=== PATIENT | female | born 1965 | race Caucasian/White ===

== ENCOUNTER → 2019-04-06 07:15 | Outpatient (CLI) | payer BC, SELFPAY ==
--- NOTE | 2019-04-06 10:45 | NEURO ---
NCS and/or EMG Patient Report Ordering Doctor: Mahendra Alaniz DATE OF SERVICE: 04/06/19 This is a 53-year-old female with a history of a fall since then she has had paresthesias in the third fourth and fifth digits of the left hand. She is healthy otherwise. Left upper extremity sensory and motor nerve conduction study demonstrates mild prolongation of the median motor distal latency with preservation of amplitude and mild reduction of conduction velocity. The median sensory responses are normal. The ulnar motor and sensory and radial sensory responses are normal in the median and ulnar F-wave latencies are normal. Left upper extremity needle electromyography is performed. Muscles evaluated included the first dorsal osseous, abductor pollicis brevis, brachial radialis, biceps, triceps and deltoid muscles. All muscles demonstrated normal insertional activity with absence of pathologic spontaneous activity. Motor unit potential recruitment pattern and amplitude was normal in all muscles tested. 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 There is evidence of what appears to be a clinically insignificant median neuropathy at the left wrist.
== END ==
PROVIDERS: Family Provider Family Medicine; PCP Family Medicine; Referring Provider Orthopaedic Surgery; Visit Provider Orthopaedic Surgery
DX: G56.02 Carpal tunnel syndrome, left upper limb (principal); M25.532 Pain in left wrist
CPT/HCPCS: 95886; 95910

== ENCOUNTER 2019-05-12 05:59 | Observation (INO) | payer BC, SELFPAY ==
[2019-05-12] VITALS (15 sets, daily range): BP systolic 106–160; BP diastolic 41–116; PULSE 52–78; RESP 14–22; TEMP 36.3–37.4; O2SAT 94–100; BMI 29.1; BMI 32.3; BMI 32.4
--- NOTE | 2019-05-12 06:01 | EKG12_ITS ---
Test Reason : CP Blood Pressure : / mmHG Vent. Rate : 084 BPM Atrial Rate : 084 BPM P-R Int : 124 ms QRS Dur : 082 ms QT Int : 380 ms P-R-T Axes : 034 033 056 degrees QTc Int : 449 ms Normal sinus rhythm Normal ECG Confirmed by THEE MALIN, ZECHARIAH ([id number]), editorial specialist TAMAR MADRID ([id number]) on 05/17/2019 2:04:00 PM Referred By: NADIR Confirmed By:MAYTE KINGSTON MD
--- NOTE | 2019-05-12 06:09 | US_ITS ---
STUDY: ABDOMINAL ULTRASOUND - RIGHT UPPER QUADRANT REASON FOR VISIT: Female, 53 years old. Midabdominal pain and pressure. TECHNIQUE: Ultrasound evaluation of the right upper quadrant was performed with real-time and static barnard-scale imaging. TECHNICAL QUALITY: Adequate. COMPARISON: None. FINDINGS: Liver: The liver measures 14.4 cm. There is normal echogenicity of the liver. The bile ducts are within normal limits. There is hepatic color flow. The direction of portal flow is hepatopetal. There is no demonstrated mass lesion. Gallbladder: Normal distended gallbladder. The gallbladder wall is thickened and measures 5.6 mm. There is a positive sonographic Sarmiento's sign. There is no pericholecystic fluid. There are multiple echogenic structures within the gallbladder, consistent with multiple gallstones. I also suspect adenomyomatosis of the gallbladder wall. Sludge is also seen in the gallbladder lumen. Common Bile Duct (C.B.D.): The common bile duct measures 4.9 mm. Pancreas: Normal size of the head, body and tail of the pancreas. There is normal echogenicity of the pancreas. There is no demonstrated pancreatic mass or cyst. Right Kidney: Normal size of the right kidney. The right kidney measures 12.2 cm x 5.4 cm x 5.9 cm. Normal renal cortex. The right cortex measures 1.8 cm. There is no demonstrated renal mass or cyst. There is no right hydronephrosis. US/Gallbladder IMPRESSION: Multiple gallstones and sludge in the gallbladder lumen. There is also evidence of adenomyomatosis of the gallbladder wall. Electronically Signed: Alessio cMkeon, at 8:19 EDT , Service support ,
--- NOTE | 2019-05-12 06:10 | ED.DCSUM_ITS ---
- ER Visit Summary Date of Service: 05/12/19 Chief Complaint: Chest pain History of Present Illness: The patient is a 53 F who presents with chest/abdominal pain. Although triage is chest pain she points to her epigastric region and right upper quadrant. She states the pain is just below her ribs and radiates through to the back. This is acute onset just before presentation. Her pain is severe. It is colicky and waxes and wanes. It is sharp. She also reports nausea and vomiting. She states she feels short of breath. No fever. No history of prior similar symptoms. She last ate about 12 hours ago. Physical Examination: Blood pressure 160/116 afebrile vitals otherwise u nremarkable Patient appears to be in pain crying holding her abdomen and shifting position Heart is regular rate and rhythm Lungs are clear to auscultation Abdomen is soft she is tender to palpation in the epigastrium and right upper quadrant no guarding no rebound positive Sarmiento sign Test Results: EKG shows normal sinus rhythm at a rate of 84 unchanged from prior. Labs unremarkable with normal hepatic function and lipase. Chest x-ray is normal. Right upper quadrant ultrasound is pending. Emergency Department Course and Treatment: Patient was treated with IV morphine and Zofran. Pain improved from a 10 down to a 6. This is a tolerable level for her. She does not want any further pain medications at this time. Ultrasound signed out to the oncoming physician to follow-up on results and reevaluate. Treatment Plan: [] Disposition: Signed out to oncoming physician Impression: Abdominal pain This note was generated with [employer] dictation software. It may contain incorrect words, spelling, and punctuation that were not noted in review of the chart pr ior to signing ED Disposition - Plan for ED Patient: Referrals: Eladio Henry III, MD [Primary Care Provider] -
--- NOTE | 2019-05-12 06:13 | RAD_ITS ---
STUDY: X-RAY CHEST REASON FOR EXAM: Female, 53 years old. Chest pain. TECHNIQUE: Single AP portable view of the chest. COMPARISON: None. FINDINGS: The lungs are clear and expanded. There is no demonstrated pleural abnormality. Normal size heart. Normal mediastinum and uli. Normal visualized pulmonary arteries. Normal visualized aortic arch and descending thoracic aorta. Normal visualized thoracic spine. Normal visualized ribs, clavicles, and shoulders. There is no demonstrated abnormality of the visualized soft tissue structures of the upper abdomen. RAD/Chest 1 View (Portable) IMPRESSION: Normal x-ray examination of the chest. Electronically Signed: Tejas Cabrera MD at 6:46 EDT , Service support ,
[2019-05-12] MEDS: 0.9% Normal Saline 1,000 ML 1000 ML IV (06:15)
[2019-05-12] MEDS: Morphine 4 MG/ML Syringe IV ×3 (06:15→21:10)
[2019-05-12] MEDS: Ondansetron 4 MG/2 ML Vial IV (06:15)
--- NOTE | 2019-05-12 06:22 | EKG12_ITS ---
Test Reason : PREOP Blood Pressure : / mmHG Vent. Rate : 065 BPM Atrial Rate : 065 BPM P-R Int : 154 ms QRS Dur : 088 ms QT Int : 420 ms P-R-T Axes : 027 005 016 degrees QTc Int : 436 ms Normal sinus rhythm Normal ECG When compared with ECG of 08-OCT-2010 16:17, No significant change was found Confirmed by THEE MALIN, ZECHARIAH ([id number]), writer editor UMBERTO JACOB ([id number]) on 05/14/2019 2:21:14 PM Referred By: CECE Confirmed By:MAYTE KINGSTON MD
[2019-05-12 06:25] LABS: Absolute Lymphocyte Count 2.36 X10^3/uL (0.83-4.51); Basophil# 0.04 X10^3/uL; Basophil% 0.6 % (0-1); Eosinophil# 0.17 X10^3/uL; Eosinophils% 2.7 % (0-5); Hematocrit 42.9 % (37-47); Lymphocyte # 2.36 X10^3/ul (4.0); Mean Corp Hgb Conc 32.6 g/dL (32-36); Mean Corpuscular Volume 95.1 fL (81-99); Mean Platelet Vol. 10.9 fl (6.2-12.0); Monocyte# 0.65 X10^3/uL; Monocyte% 10.5 % (0-10); NRBC Flagged by Analyzer 0 % (0-5); Neutrophil # 2.98 X10^3/uL (2.7-7.7); Platelet Count 273 K/mm3 (150-450); RBC Distribution Width CV 12.7 % (11.6-14.6); RBC Distribution Width SD 44.1 fl (35.1-43.9); Red Blood Count 4.51 M/mm3 (4.2-5.4); White Blood Count 6.2 K/mm3 (4.4-11.0)
[2019-05-12 06:47] LABS: AST(SGOT) 14 U/L (15-37); Alanine Aminotransfer ALT/SGPT 23 U/L (13-56); Albumin, Serum 3.9 g/dL (3.2-5.0); Alkaline Phosphatase 76 U/L (45-117); Anion Gap 9 (5-15); BUN 13 mg/dL (7-18); BUN/Creat Ratio 15.6 RATIO (10-20); Calcium,Total 8.9 mg/dL (8.5-10.1); Chloride 109 mmol/L (98-107); Creatinine, Serum 0.83 mg/dL (0.55-1.02); EST Glomerular Filtration Rate 76 mL/min (>60); Est Glom Filt Rate - Afr Amer 91 mL/min (>60); Estimated Creatinine Clearance 77.26 ml/min; Globulin 4.1 g/dL (2.2-4.2); Glucose 86 mg/dL (74-106); Lipase 151 U/L (73-393); Potassium 3.5 mmol/L (3.5-5.1); Sodium Level 146 mmol/L (136-145)
--- NOTE | 2019-05-12 09:02 | NURSING ---
101 RCEBUL OBS BILIARY COLIC CHOLETHIASIS
--- NOTE | 2019-05-12 09:09 | NURSING ---
NEW ROOM 120
[2019-05-12] MEDS: 0.9% Normal Saline 1,000 ML 150 ML IV (09:13)
--- NOTE | 2019-05-12 10:20 | PCM.HP.STD ---
Problem List (1) Right upper quadrant pain Status: Acute History of Present Illness Date of Admission: 05/12/19 Chief Complaint: Right upper quadrant/epigastric pain The patient is a 53 year old F who presents with epigastric pain/right upper quadrant pain starting at 0500. This pain woke patient out of a sleep. She thought this may have been heartburn however this discomfort was worse than any other heartburn episode. She has never had pain like this before. She noted the pain also radiated straight into her mid back. She had multiple episodes of vomiting. Last night for dinner she had [employer] cheesesteak tacos, truffle fries and a few tequila sunrises. Patient notes she takes Protonix 40 mg frequently. She noted taking Protonix yesterday morning. Patient states she had an upper and lower by Dr. Gaviria in 2013. Findings included normal esophagus, mild erythema or stomach and normal duodenum. Pathology returned as No diagnostic alteration. Negative H Pylori. Colonoscopy demonstrated completely normal colon. Recommend follow-up in 10 years. Patient denies family history of digestive cancers. Patient denies recent change in bowel habits. She denies previous knowledge of gallbladder disease. Patient denies previous history of cardiac and pulmonary disease. Denies previous myocardial infarction, stroke and blood clots. Patient has occasional swelling of her legs and ankles. Previous abdominal surgeries include total hysterectomy and . RUQ u/s demonstrated multiple gallstones and evidence of adenomyomatosis. Past Medical History Allergies acetaminophen [From Tylenol Cold Multi-Symptom Day] Allergy (Verified 05/12/19 06:33) Other dextromethorphan [From Tylenol Cold Multi-Symptom Day] Allergy (Verified 05/12/19 06:33) Other phenylephrine [From Tylenol Cold Multi-Symptom Day] Allergy (Verified 05/12/19 06:33) Other sulfamethoxazole [From Septra] Allergy (Verified 05/12/19 06:33) Unknown trimethoprim [From Septra] Allergy (Verified 05/12/19 06:33) Unknown Home Medications: Ambulatory Orders Medication Instructions Recorded Pantoprazole Sodium [Protonix] 40 mg PO DAILY 10/13/16 Sumatriptan Succinate [Imitrex] 50 mg PO .X1 PRN PRN 10/13/16 Ibuprofen [Motrin] 600 mg PO TID PRN PRN 05/12/19 Surgical History: hysterectomy, - - x 1 Psychiatric History: No pertinent psych hx 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 Lives: Spouse/ Significant Other Smoking Status: Current every day smoker - *Family History Maternal History Items: No pertinent history Paternal History Items: No pertinent history Review of Systems Constitutional: Reports: Anorexia HEENT: Denies: Head Aches, Sinus Congestion, Sinus Drainage Cardiovascular: Denies: Chest Pain, Palpitations Respiratory: Denies: Cough, Shortness of breath at rest, Sputum production Gastrointestinal: Reports: Abdominal Pain, Vomiting Genitourinary: Denies: Dysuria Musculoskeletal: Denies: Joint Pain, Joint Tenderness Skin: Denies: Rash, Wounds Neurological: Denies: Numbness, Tingling, Focal weakness Psychiatric: Denies: Anxiety, Depression, Homicidal Ideations, Suicidal Ideations Hematologic/ Lymphatic: Denies: Easy Bruising, Easy Bleeding VTE Information - Inpt Only VTE Present on Admission: Yes VTE Mechan Device Prophylaxis: SCD's Patient Problems: Active and Suspected Problems Right upper quadrant pain (Acute) - Physical Exam General: Alert, Oriented x3, Cooperative HEENT: Atraumatic, PERRLA, EOMI, Normocephalic Neck: Supple, No JVD, Negative Carotid Bruits Lungs: Clear to auscultation, Normal air movement Cardiovascular: Regular rate, No murmurs Abdomen: Hypoactive Bowel Sounds, Obese, Guarding, Tender - RUQ Extremities: No edema, Capillary Refill Less than 3 Seconds Skin: No rashes, No breakdown Musculoskeletal: No Tenderness to Palpation of Joints or Extremities Neurological: Cranial nerves II-XII grossly intact Psych/Mental Status: Normal Affect, Appropriate Vital Signs Temp Pulse Resp BP Pulse Ox 98.3 F 66 16 106/43 L 100 05/12/19 09:43 05/12/19 09:43 05/12/19 09:43 05/12/19 09:43 05/12/19 09:43 Oxygen Delivery Method Room Air Weight: 188 lb 7.924 oz Body Mass Index (BMI) 32.3 Laboratory Tests Past 24 Hrs 05/12/19 05/12/19 06:00 06:00 WBC 6.2 RBC 4.51 Hgb 14.0 Hct 42.9 MCV 95.1 MCH 31.0 MCHC 32.6 RDW Std Deviation 44.1 H RDW Coeff of Agatha 12.7 Plt Count 273 MPV 10.9 Immature Gran % (Auto) 0.200 Neut % (Auto) 48.0 Lymph % (Auto) 38.0 Forest % (Auto) 10.5 H Eos % (Auto) 2.7 Baso % (Auto) 0.6 Absolute Neuts (auto) 3.0 Absolute Lymphs (auto) 2.36 Absolute Nucleated RBC 0.00 Nucleated RBC % 0 Sodium 146 H Potassium 3.5 Chloride 109 H Carbon Dioxide 28.0 Anion Gap 9 BUN 13 Creatinine 0.83 Estim Creat Clear Calc 77.26 Est GFR (MDRD) Af Amer 91 Est GFR (MDRD) Non-Af 76 BUN/Creatinine Ratio 15.6 Glucose 86 Calcium 8.9 Total Bilirubin 0.30 AST 14 L ALT 23 Alkaline Phosphatase 76 Total Protein 8.0 Albumin 3.9 Globulin 4.1 Albumin/Globulin Ratio 1.0 Lipase 151 Assessment/Plan All Active Problems Right upper quadrant pain (Acute) I am seeing this patient in conjunction with Dr. Henry. Impression: Right upper quadrant pain consistent with acute cholecystitis Plan: Patient was discussed with Dr. Henry. Dr. Henry will plan to perform a laparoscopic cholecystectomy with intraoperative cholangiogram. Procedure details, risks and benefits have been explained to the patient. It has also been discussed with the patient and her , that if there is a stone that may not be retrieved she may need to have an ERCP or further intervention. Patient and her have had the opportunity to ask and have questions answered. Patient verbally understands and agrees with the proposed procedure. Thank you for allowing us to participate in this patient's care. Code Visit Office Visits / Consults: [id number] IP Consult L3
--- NOTE | 2019-05-12 10:25 | GALL_PTH ---
PATIENT: EDWARD FLORES LOC: PCU U#:[id number] AGE/SX: 53/F ROOM: [facility] RE05/12/[address]: Dr. Anjum Henry MD : [id number] BED: 1 DIS: 05/13/2019 SPEC #: [id number] RECD: 05/12/19 13:34 STATUS: LEELEE REQ #: [id number] PINA: 05/12/19 10:[address]: Anjum Henry DEPT: SURGICAL PATHOLOGY RECD BY: Rubén Arredondo ENTERED: 05/12/19 13:46 SP TYPE: MINERVA YEAGER DR: Dr. Eladio Henry III, MD Tissues: Gallbladder, NOS Procedures: Surgery Specimen Level III HEADER OPERATION: Laparoscopic cholecystectomy with IOC PRE-OP DIAGNOSIS: Acute cholecystitis TISSUE SUBMITTED: Gallbladder MICROSCOPIC DIAGNOSIS Gallbladder, cholecystectomy: Chronic cholecystitis and cholelithiasis. SJ:james 05/13/19 MICROSCOPIC DESCRIPTION Slides are reviewed. GROSS DESCRIPTION Received is one container labeled with the patient's name and designated gallbladder. The specimen consists of a gallbladder measuring 10.5 cm in length and 4.5 cm in diameter. The external surface is pink-davis, smooth and glistening for the most part. Focally it is granular, hemorrhagic and contains cautery artifact. The gallbladder contains three davis-greenish irregular to round stones measuring in aggregate 1.5 x 1.4 x 0.5 cm and 0.5 cm in average dimension. One of the stones is present in the cystic duct. The mucosa is bile-stained and without any mass lesions. The gallbladder wall measures up to 0.3 cm in thickness. Abattoir Manager sections from the gallbladder and the cystic duct are submitted in one cassette. / SJ:james 05/12/19 TC:3 CPT: 49524
--- NOTE | 2019-05-12 10:53 | RAD_ITS ---
STUDY: INTRAOPERATIVE INTRA CHOLANGIOGRAM. REASON FOR EXAM: Female, 53 years old. Laparoscopic cholecystectomy. FLUOROSCOPY TIME (if supplied): (26:02) seconds. TECHNIQUE: An intraoperative pyelogram was performed by the surgeon. Intraoperative imaging was provided. COMPARISON: None. FINDINGS: The common bile duct is not dilated. No intraluminal filling defect is seen. There is free flow of contrast into the duodenum. RAD/Cholangiogram/ O R,Initial IMPRESSION: Unremarkable intraoperative cholangiogram. Electronically Signed: Alessio Mckeon, at 14:30 EDT , Service support ,
--- NOTE | 2019-05-12 10:59 | DCINST_ITS ---
<Anjum Henry - Last Filed: 05/12/19 10:59> Discharge Diet: Light diet - advance as tolerated - if you have questions about your diet instructions, please talk to you doctor. Discharge Activity: May Not Drive - for 3-5 days or while taking narcotic pain medicine. May shower in (days): 1 Lifting Restrictions: 10 pounds Call your doctor if your incision/area has: Continuous Slow Oozing, Sudden Increased Bleeding, Increased Pain/ Swelling, Increased Redness, Foul Smelling Discharge Call your doctor if you observe: Fever of 101 or Higher Suture Line Care: Avoid Pulling/Pushing, Avoid Pinching/Bending Additional Dressing/Incision Instructions:: Change or remove dressing in 4 days. Leave steri-strips in place for 1 week. Allergies/Adverse Reactions: Allergies acetaminophen [From Tylenol Cold Multi-Symptom Day] Allergy (Verified 05/12/19 06:33) Other dextromethorphan [From Tylenol Cold Multi-Symptom Day] Allergy (Verified 05/12/19 06:33) Other phenylephrine [From Tylenol Cold Multi-Symptom Day] Allergy (Verified 05/12/19 06:33) Other sulfamethoxazole [From Septra] Allergy (Verified 05/12/19 06:33) Unknown trimethoprim [From Septra] Allergy (Verified 05/12/19 06:33) Unknown Medications to take at Discharge Pantoprazole Sodium [Protonix] 40 mg PO DAILY 10/13/16 Sumatriptan Succinate [Imitrex] 50 mg PO .X1 PRN PRN 10/13/16 Hydrocodone Bitart/Apap 5-325 [[place] 5MG-325MG] 1 tab PO Q4H PRN PRN 2 Days #10 tab 05/12/19 Ibuprofen [Motrin] 600 mg PO TID PRN PRN 05/12/19 The following prescriptions were given: Hydrocodone Bitart/Apap 5-325 [[place] 5MG-325MG] 1 tab PO Q4H PRN PRN 2 Days #10 tab PRN Reason: Pain Transmission Status: Received by [facility]/pharmacy #[id number] Primary Care Physician: Eladio Henry III, MD [Primary Care Provider] - Test Results: Test results from this visit will be discussed in further detail at your follow- up appointment, if applicable. Please Follow Up With: Anjum Henry MD - [phone] When: Call to make an appointment to be seen in about 10 days. <Trista Dennison - Last Filed: 05/13/19 12:26> Additional Instructions: Recommend Robitussin and Flonase over the counter for viral symptoms. Test Results: Test results from this visit will be discussed in further detail at your follow- up appointment, if applicable.
--- NOTE | 2019-05-12 11:01 | PCM.PN.BLA ---
Progress Note I reviewed this patient's history and physical exam with her. I have reviewed the ultrasound and laboratory available. I concur that the findings are consistent with acute cholecystitis cholelithiasis. I have recommended to the patient a laparoscopic cholecystectomy with selective cholangiography. In detail I have discussed the technique, benefits, risks, alternatives. No guarantees of success have been offered. She is aware it could require conversion to an open technique. She has had an opportunity to ask and have questions answered. Zosyn antibiotic was already administered through the emergency department. We will proceed as indicated and expedite her care. Anjum Henry M.D., F.A.C.S.
[2019-05-12] MEDS: Bupivacaine Mpf 0.5% 30 ML VIAL (12:08)
--- NOTE | 2019-05-12 12:13 | OP.PCM_ITS ---
Problem List (1) Cholecystitis, acute with cholelithiasis Status: Acute Qualifiers: Biliary obstruction: without biliary obstruction Qualified Code(s): K80.00 - Calculus of gallbladder with acute cholecystitis without obstruction Report of Operation Date of Procedure: 05/12/19 Pre-Operative Diagnosis: Acute cholecystitis cholelithiasis Post-Operative Diagnosis: Same Surgery/Procedure Performed:: Laparoscopic cholecystectomy with cholangiography Description of Surgical Findings:: Timeout and informed consent was obtained. 53-year-old female taken out from placement table and with general endotracheal intubation anesthesia. Zosyn to be given intravenously in the emergency room. The abdomen was sterilely prepped and draped. 0.5% Marcaine was used as local anesthetic. Skin sites were pre- anesthetized. Throughout the procedure a total of 30 cc was used. A infraumbilical incision was created sharp dissection carried down through the subtenons tissue holding sutures of 0 Vicryl placed varies needle was inserted saline drop test performed the abdomen was insufflated with CO2 to a pressure of 10 mm circular pressure 5-minute trochars were placed in the epigastric mid abdomen right upper quadrant father had multiple adhesions of omentum densely adherent these had to be dissected free with electrocautery. The gallbladder was then distracted blunt dissection was instituted the infundibulum until clearly the cystic duct and cystic artery were identified. Hem-o-misti clip was placed on the cystic duct stump incision in the cystic duct through a 14-gauge Angiocath clench Edison catheter was inserted. Uroscopic rate control claims grams were obtained demonstrating very slow flow through the common bile duct bu t there appeared then to be eventually good flow into the duodenum. I did not see a focal obstructing intraluminal mass. The cholangiogram catheter was removed. A hemo-lock clip was placed on the cystic duct stump prior to transecting it. The cystic artery was clipped proximally prior to transecting it. The gallbladder was tediously dissected from the liver bed. There was signs of edema of the gallbladder wall and adherence. He was carefully teased free and hemostasis obtained electrocautery. The liver bed was carefully inspected. The gallbladder was placed in retrieval bag. The right upper quadrant was irrigated and aspirated free of excess fluid. Fibular was placed in the liver bed. The gallbladder was exited at the umbilicus but slightly enlarging the fascial incision. The remaining trochars removed under visualization. The abdomen was allowed to deflate of the CO2. The fascia at the umbilicus was approximated interrupted 0 Vicryl pustae-at-cwimd suture. Skin edges approximate interrupted 4-0 Monocryl subdermal stitches. Steri- Strips Telfa and OpSite dressings applied. Sponge and instrument and needle counts were reported to the surgeon to be correct. Specimens gallbladder. Drains none. Blood loss 50 cc. Anjum Henry M.D., F.A.C.S. Type of Anesthesia:: General Anesthesiologist: Alo Banks
[2019-05-12] MEDS: Lactated Ringers 1,000 ML 100 ML IV ×2 (13:50→20:57)
--- NOTE | 2019-05-12 18:50 | PCM.PN.BLA ---
Progress Note Doing well, sore, continue care. Dilan
[2019-05-12] MEDS: 0.9% NaCl Peripheral Flush Adult/Peds IV (21:10)
[2019-05-13] MEDS: oxyCODONE 5 MG Tablet PO ×2 (02:54→09:10)
[2019-05-13 03:05] VITALS: BP 104/48; PULSE 85; RESP 18; TEMP 37.1; O2SAT 96
--- NOTE | 2019-05-13 03:55 | RAD_ITS ---
STUDY: X-RAY CHEST REASON FOR EXAM: Female, 53 years old. Cough. Status post cholecystectomy 05/12/2019. TECHNIQUE: Frontal and lateral views of the chest. COMPARISON: 05/12/2019. FINDINGS: The lungs are mildly underexpanded. There is no demonstrated pulmonary infiltrate.. There is no demonstrated pleural abnormality. Normal size heart. Normal mediastinum and uli. Normal visualized pulmonary arteries. Normal visualized aortic arch and descending thoracic aorta. There are diffuse degenerative changes of the visualized thoracic spine. Normal visualized ribs, clavicles, and shoulders. There is no demonstrated abnormality of the visualized soft tissue structures of the upper abdomen. RAD/Chest PA and Lateral IMPRESSION: No evidence for acute cardiopulmonary pathology. Electronically Signed: Tejas Cabrera MD at 4:28 EDT , Service support ,
[2019-05-13] MEDS: guaiFENesin 10 ML UDC (200MG/10ML) PO ×2 (04:13→09:10)
--- NOTE | 2019-05-13 05:45 | PCM.PN.SRG ---
<Anjum Henry Hernan - Last Filed: 05/13/19 05:45> Patient Problems: Active and Suspected Problems Right upper quadrant pain (Acute) Cholecystitis, acute with cholelithiasis (Acute) Subjective: Pt c/o of severe acute cough - Physical Exam Lungs: - - tight, poor excursion Abdomen: Bowel Sounds Present, Soft, Distended Vital Signs Temp Pulse Resp BP Pulse Ox 98.8 F 85 18 104/48 L 96 05/13/19 03:05 05/13/19 03:05 05/13/19 03:05 05/13/19 03:05 05/13/19 03:05 Oxygen Flow Rate (L/min) 2 Oxygen Delivery Method Room Air Weight: 188 lb 7.924 oz Body Mass Index (BMI) 32.3 Intake and Output for Last 24 Hours 05/11/19 05/12/19 05/13/19 23:59 23:59 23:59 Intake Total 2756 / 2756 1280 / 1280 Balance 2756 / 2756 1280 / 1280 Laboratory Tests Past 24 Hrs 05/12/19 05/12/19 06:00 06:00 WBC 6.2 RBC 4.51 Hgb 14.0 Hct 42.9 MCV 95.1 MCH 31.0 MCHC 32.6 RDW Std Deviation 44.1 H RDW Coeff of Agatha 12.7 Plt Count 273 MPV 10.9 Immature Gran % (Auto) 0.200 Neut % (Auto) 48.0 Lymph % (Auto) 38.0 [place] % (Auto) 10.5 H Eos % (Auto) 2.7 Baso % (Auto) 0.6 Absolute Neuts (auto) 3.0 Absolute Lymphs (auto) 2.36 Absolute Nucleated RBC 0.00 Nucleated RBC % 0 Sodium 146 H Potassium 3.5 Chloride 109 H Carbon Dioxide 28.0 Anion Gap 9 BUN 13 Creatinine 0.83 Estim Creat Clear Calc 77.26 Est GFR (MDRD) Af Amer 91 Est GFR (MDRD) Non-Af 76 BUN/Creatinine Ratio 15.6 Glucose 86 Calcium 8.9 Total Bilirubin 0.30 AST 14 L ALT 23 Alkaline Phosphatase 76 Total Protein 8.0 Albumin 3.9 Globulin 4.1 Albumin/Globulin Ratio 1.0 Lipase 151 Medical Necessity - Tobacco Use Smoking Status: Current every day smoker Assessment/Plan All Active Problems Right upper quadrant pain (Acute) Cholecystitis, acute with cholelithiasis (Acute) Acute respiratory complaints CXR not remarkable Hospitalist consult prior to surgical discharge <JumaTrista - Last Filed: 05/13/19 12:19> - Physical Exam Vital Signs Temp Pulse Resp BP Pulse Ox 98.4 F 84 16 119/54 L 94 05/13/19 09:05 05/13/19 09:05 05/13/19 09:05 05/13/19 09:05 05/13/19 09:05 Oxygen Flow Rate (L/min) 2 Oxygen Delivery Method Room Air Weight: 188 lb 7.924 oz Body Mass Index (BMI) 32.3 Intake and Output for Last 24 Hours 05/11/19 05/12/19 05/13/19 23:59 23:59 23:59 Intake Total 2756 / 2756 2003 Balance 2756 / 2756 2003 Assessment/Plan Hospitalist service was consulted and evaluated this patient. Patient is medically stable and cleared for discharge by Medicine. Recommend Robitussin and Flonase over the counter for symptoms. No signs of pneumonia. Viral symptoms which patient stated started prior to surgery. Will discharge patient to home.
[2019-05-13 09:05] VITALS: BP 119/54; PULSE 84; RESP 16; TEMP 36.9; O2SAT 94
--- NOTE | 2019-05-13 11:08 | PCM.PN.HOSP ---
Patient Problems: Active and Suspected Problems Right upper quadrant pain (Acute) Cholecystitis, acute with cholelithiasis (Acute) Subjective: 33-year-old female who presented to the hospital with cholecystitis. She was admitted by general surgery and underwent a lap cholecystectomy on 05/12/2019. She did okay postoperatively however this morning she was having a significant amount of coughing. She is not bringing up a lot of sputum up and she does not have a fever or leukocytosis. She does have a little bit of abdominal pain whenever she coughs likely secondary to her surgical issues. She states that she is a smoker and does cough on occasion and also prior to surgery she was having a little bit of an upper respiratory infection with a postnasal drip. She denies any chest pain, and a chest x-ray which was obtained this morning was normal. Vitals/I&O's: Vital Signs Temp Pulse Resp BP Pulse Ox 98.4 F 84 16 119/54 L 94 05/13/19 09:05 05/13/19 09:05 05/13/19 09:05 05/13/19 09:05 05/13/19 09:05 Oxygen Flow Rate (L/min) 2 Oxygen Delivery Method Room Air Weight: 188 lb 7.924 oz Body Mass Index (BMI) 32.3 Intake and Output for Last 24 Hours 05/11/19 05/12/19 05/13/19 23:59 23:59 23:59 Intake Total 2756 / 2756 2003 Balance 2756 / 2756 2003 General: Alert, Oriented x3, Cooperative, No apparent distress HEENT: Atraumatic, PERRLA, EOMI, Normocephalic Oral: Moist Mucosa Neck: Supple, No JVD Lungs: Clear to auscultation, Normal air movement, No rhonchi, No wheeze, No rales, Diminished Cardiovascular: Regular rate, Regular Rhythm, Normal S1, Normal S2, No murmurs Abdomen: Soft, Non Tender, Non-Distended, No Hepato-splenomegaly Extremities: No edema, Capillary Refill Less than 3 Seconds Skin: No rashes, No breakdown Neurological: Neuro grossly intact, Sensory exam intact to light touch and pain Psych/Mental Status: Normal Affect, Appropriate Current Medications Acetaminophen/Codeine Phosphate (Tylenol#3) 2 tablet PO Q4H PRN PRN PRN Reason: prn cough Benzonatate (Tessalon Perle) 100 mg PO Q4H PRN PRN PRN Reason: COUGH Guaifenesin (Robitussin) 10 ml PO Q4H PRN PRN PRN Reason: COUGH Last Admin: 05/13/19 09:10 Dose: 10 ml Documented by: Ibuprofen (Motrin) 600 mg PO TID PRN PRN PRN Reason: PAIN Morphine Sulfate () 4 mg IV Q3H PRN PRN PRN Reason: Severe pain (7-10/10) Last Admin: 05/12/19 21:10 Dose: 4 mg Documented by: Ondansetron HCl (Zofran) 4 mg IV Q8H PRN PRN PRN Reason: NAUSEA/VOMITING Oxycodone HCl (Oxyir) 5 mg PO Q4H PRN PRN PRN Reason: Moderate Pain (4-6/10) Last Admin: 05/13/19 09:10 Dose: 5 mg Documented by: Pantoprazole Sodium (Protonix) 40 mg PO DAILY EZ Last Admin: 05/13/19 09:11 Dose: Not Given Documented by: Rizatriptan Benzoate (Maxalt) 10 mg PO X1 PRN PRN Reason: MIGRAINE HEADACHE Sodium Chloride () 10 - 40 ml IV UD PRN PRN Reason: SALINE FLUSH Last Admin: 05/12/19 21:10 Dose: 10 ml Documented by: Medical Necessity - Tobacco Use Smoking Status: Current every day smoker Assessment/Plan All Active Problems Right upper quadrant pain (Acute) Cholecystitis, acute with cholelithiasis (Acute) 1. Cholecystitis status post lap cholecystectomy -Pain control per primary -Afebrile without leukocytosis 2. Cough with possible viral URI -There is no signs of pneumonia on physical exam or on imaging -Given the fact that she smokes, the cough is more than likely benign -A viral PCR is pending though this would not change management lead or disposition -Encourage incentive spirometer, ambulation and generally being out of bed -Can continue with cough syrup and Tessalon Perles -Medically she is stable for discharge, I do recommend that she obtain Flonase as an outpatient to help with any postnasal drip and symptom management for her upper respiratory infection and/or allergies -She does have albuterol at home which she states she uses on occasion if she has breathing trouble generally from intense smells. 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 3. GERD -Stable -Continue with PPI 4. Migraine history -Currently without a headache -Triptan and is available if necessary DVT: SCDs and ambulation Code Visit Inpatient E&M: 69812 Subs Hosp L3
== END 2019-05-13 12:14 | disposition home or self-care (01) ==
LOC: ED 07:21 → PCU 09:08
PROVIDERS: Emergency Medicine; Admitting Provider Surgery; Emergency Provider Emergency Medicine; Family Provider Family Medicine; PCP Family Medicine; Visit Provider Surgery
PROC: (CPT 47610; principal; 2019-05-12 10:05)
DX: K80.12 Calculus of gallbladder with acute and chronic cholecystitis without obstruction (principal); I10 Essential (primary) hypertension; Z79.899 Other long term (current) drug therapy; K21.9 Gastro-esophageal reflux disease without esophagitis; G43.909 Migraine, unspecified, not intractable, without status migrainosus; F17.200 Nicotine dependence, unspecified, uncomplicated
CPT/HCPCS: 47563; 71045; 71046; 74300; 76000; 76705; 80053; 83690; 85025; 87633; 88304; 93005; 96361; 96365; 96367; 96375; 96376; 99218; 99251; 99284; 99406; J7030; J7120; A4216; G0378; G0463; J2405

== ENCOUNTER → 2019-05-20 09:45 | Outpatient (CLI) | payer BC, SELFPAY ==
[2019-05-12 10:19] VITALS: BMI 32.3
[2019-05-20 10:04] LABS: Mucous, Urine 0 SEEN /hpf (<or=2+); Red Blood Cells-Urine 0 SEEN /hpf (0-5)
[2019-05-20 10:06] LABS: Color, Urine Yellow (Yellow); Glucose, Dipstick Normal (Normal); Ketone-Dipstick Negative (Negative); Leukocyte Esterase-Dipstick 100 /ul (Negative); Nitrite-Dipstick Negative (Negative); Occult Blood-Urine Negative /ul (Negative); Protein-Dipstick Negative (Negative); Specific Gravity, Urine 1.015 (1.002-1.030); Urine Bilirubin Dipstick Negative (Negative); Urine Clarity Clear (Clear); Urine Urobilinogen Normal (Normal)
[2019-05-20 10:28] LABS: Bacteria 1+ /hpf (None Seen); Squamous Epithelial Cells - UA 0-5 SEEN /hpf (5-10); White Blood Cells 0-5 SEEN /hpf (0-5)
== END ==
PROVIDERS: Family Provider Family Medicine; PCP Family Medicine; Referring Provider Physician Assistant; Visit Provider Physician Assistant
DX: R30.0 Dysuria (principal)
CPT/HCPCS: 81001

== ENCOUNTER 2021-07-29 17:16 | Emergency (ER) | payer OTHER, BC, SELFPAY ==
[2021-07-29 17:17] VITALS: BP 120/77; PULSE 82; RESP 16; TEMP 36.7; BMI 31.8
--- NOTE | 2021-07-29 17:40 | ED.VIS.LOWEX ---
HPI History of Present Illness Chief Complaint: Lower Extremity Injury Informant: patient Occured/Mechanism Mechanism/Context: Yes fall Onset/Context/Timing Onset: Yesterday Current Severity: Mild Maximum Severity: Moderate Narrative Narrative: Patient present secondary to right knee pain. She was at work yesterday and tripped over a rug. She fell forward landing on her right knee. She states has been on her feet all day at work today and it is bothering her more. She denies any other injury from the fall. She did take Aleve this morning for pain. [facility] Medical History Acid reflux Asthma Cholecystitis, acute with cholelithiasis Right upper quadrant pain Home Medications pantoprazole 40 mg PO DAILY 10/13/16 [History Last Taken Unknown] sumatriptan succinate 50 mg PO .X1 PRN PRN 10/13/16 [History Last Taken Unknown] ibuprofen 600 mg PO TID PRN PRN 05/12/19 [History Last Taken Unknown] naproxen [Naprosyn] 500 mg PO BID PRN #20 tab 07/29/21 [Rx Last Taken Unknown] Allergy/AdvReac Type Severity Reaction Status Date / Time acetaminophen Allergy Other Verified 05/20/19 09:16 [From Tylenol Cold Multi-Symptom Day] dextromethorphan Allergy Other Verified 05/20/19 09:16 [From Tylenol Cold Multi-Symptom Day] phenylephrine Allergy Other Verified 05/20/19 09:16 [From Tylenol Cold Multi-Symptom Day] sulfamethoxazole Allergy Unknown Verified 05/20/19 09:16 [From Septra] trimethoprim [From Septra] Allergy Unknown Verified 05/20/19 09:16 cefazolin [From Ancef] AdvReac Mild rash Verified 05/20/19 16:25 Surgical History Hx of cholecystectomy Social History Smoking Status: Current every day smoker tobacco type: cigarettes ROS ROS ED Constitutional Constitutional ED: Denies chills or fever(s) Eyes Eyes: Denies change in vision ENT ENT ED: Denies sore throat Cardiovascular Cardiovascular: Denies chest pain Respiratory/Chest Respiratory/Chest: Denies cough or dyspnea Gastrointestinal Gastrointestinal: Denies abdominal pain, diarrhea, nausea or vomiting Genitourinary Genitourinary ED: Denies dysuria Musculoskeletal Musculoskeletal: Reports arthralgias; Denies back pain Integumentary Denies rash Neurologic Neurologic: Denies headache(s) or weakness Allergic/Immunologic Allergic/Immunologic ED: Denies urticaria EXAM Physical Exam Const Vital Signs: 07/29/21 17:17 Temperature 98.0 F Temperature Source Temporal Pulse Rate 82 Respiratory Rate 16 Blood Pressure 120/77 Blood Pressure Mean 91 Positive well nourished and well developed General Appearance ED: well developed HEENT Reports normocephalic and head/scalp atraumatic Eyes PERRL and EOMs intact bilaterally Neck supple Chest Wall inspection of chest normal and palpation of chest normal Resp normal respiratory effort and clear to auscultation bilaterally Cardio regular rate and regular rhythm GI normal to inspection, nondistended, normoactive bowel sounds Palpation: soft Extremity Extremity Narrative: Small abrasion noted over the anterior right knee. Tenderness along the medial joint line and over the patella. No joint laxity noted. No significant edema or effusion. Strong distal pulses with no tenderness at the ankle or hip. Neuro oriented x3 and no sensory deficits noted Sensorium / Orientation: alert Motor Exam: strength 5/5 throughout Psych mental status grossly normal Skin no rashes or lesions noted MDM MDM MDM Narrative Medical decision making narrative: Right knee x-rays obtained. Radiography Diagnostic Testing: Radiology Impression Knee X-Ray 07/29/21 17:45 IMPRESSION: Normal x-ray examination of the knee. Electronically Signed: Noman Bridges MD at 18:27 EDT , Service support , Treatment and Re-Evaluation Comments:: Right knee x-ray per my interpretation was no obvious fracture. Radiology interpretation is reviewed. Raj wrap is applied to the right knee. Prescription for naproxen will be written for the patient. Discharge Plan Triage Chief Complaint: Lower Extremity Injury ED Provider: Yarelis Luna Dx/Rx/DC Orders Clinical Impression: Fall, Contusion of knee, right Instructions: ED Contusion, Lower Extremity, ED Fall with Uncertain Cause Prescriptions: New naproxen [Naprosyn] 500 mg tablet 500 mg PO BID PRN (Reason: pain) Qty: 20 RF: 0 No Action sumatriptan succinate 50 MG tablet 50 mg PO .X1 PRN PRN (Reason: Headache) RF: 0 pantoprazole 40 MG tablet 40 mg PO DAILY RF: 0 ibuprofen 800 MG tablet 600 mg PO TID PRN PRN (Reason: Pain) RF: 0 Stand Alone Forms: Work Status Form Primary Care Provider: Valorie Nunez Referrals: [facility]GROUP OF PHYSICIANS] - 3-5 Days Valorie Nunez MD [Primary Care Provider] - Disposition Disposition: Home, Self Care
--- NOTE | 2021-07-29 17:45 | RAD_ITS ---
STUDY: X-RAY - RIGHT KNEE REASON FOR EXAM: Female, 55 years old. PAIN TO KNEE AFTER FALLING TECHNIQUE: 4 view(s) of the knee. COMPARISON: None. FINDINGS: Normal visualized distal femur. Normal visualized proximal tibia and fibula. Normal proximal tibiofibular articulation. There is no demonstrated fracture. Normal medial femorotibial compartment. Normal lateral femorotibial compartment. Normal patellofemoral articulation. There is no demonstrated joint effusion. The soft tissue structures are unremarkable. RAD/Knee 4 or More Views IMPRESSION: Normal x-ray examination of the knee. Electronically Signed: Noman Bridges MD at 18:27 EDT , Service support ,
--- NOTE | 2021-07-29 19:25 | ED.RN ---
PT STATES PER FRANCIE NO WORKMANS COMP TESTING WAS REQUIRED.
== END 2021-07-29 19:26 | disposition home or self-care (01) ==
PROVIDERS: Emergency Provider Emergency Medicine; PCP Internal Medicine
DX: S80.01XA Contusion of right knee, initial encounter (principal); W18.09XA Striking against other object with subsequent fall, initial encounter; Y93.89 Activity, other specified; Y92.89 Other specified places as the place of occurrence of the external cause; Y99.0 Civilian activity done for income or pay; F17.210 Nicotine dependence, cigarettes, uncomplicated; J45.909 Unspecified asthma, uncomplicated; K21.9 Gastro-esophageal reflux disease without esophagitis; Z79.1 Long term (current) use of non-steroidal anti-inflammatories (NSAID)
CPT/HCPCS: 73564; 99282

== ENCOUNTER 2021-10-23 07:58 | Emergency (ER) | payer BC, SELFPAY ==
[2021-10-23 07:59] VITALS: BP 136/66; PULSE 70; RESP 18; TEMP 36.7; O2SAT 97; BMI 31.8
--- NOTE | 2021-10-23 08:26 | EX.ED.VIS.HA ---
HPI History of Present Illness Chief Complaint: Headache Informant: patient Narrative Narrative: 55-year-old female presents to the emergency room for the evaluation of headache. Patient states that she has intermittently gotten migraines in the past. She states that last night she began to have an occipital headache and nausea. She states the headache seems to spread cephalad. She denies any visual disturbance but does note photophobia and phonophobia. No fevers or rashes. Patient states it does feel like prior headaches but much more severe. She currently does not take any migraine abortive or preventative treatments. PFSH PFSH Medical History Acid reflux Asthma Cholecystitis, acute with cholelithiasis Right upper quadrant pain Home Medications pantoprazole 40 mg PO DAILY 10/13/16 [History Last Taken Unknown] sumatriptan succinate 50 mg PO .X1 PRN PRN 10/13/16 [History Last Taken Unknown] ibuprofen 600 mg PO TID PRN PRN 05/12/19 [History Last Taken Unknown] naproxen [Naprosyn] 500 mg PO BID PRN #20 tab 07/29/21 [Rx Last Taken Unknown] Allergy/AdvReac Type Severity Reaction Status Date / Time acetaminophen Allergy Other Verified 10/23/21 07:58 [From Tylenol Cold Multi-Symptom Day] dextromethorphan Allergy Other Verified 10/23/21 07:58 [From Tylenol Cold Multi-Symptom Day] phenylephrine Allergy Other Verified 10/23/21 07:58 [From Tylenol Cold Multi-Symptom Day] sulfamethoxazole Allergy Unknown Verified 10/23/21 07:58 [From Septra] trimethoprim [From Septra] Allergy Unknown Verified 10/23/21 07:58 cefazolin [From Ancef] AdvReac Mild rash Verified 10/23/21 07:58 Surgical History Hx of cholecystectomy Social History Smoking Status: Current every day smoker tobacco type: cigarettes ROS ROS ED Constitutional Constitutional ED: Denies chills, fever(s) or weight loss Eyes Eyes: Denies change in vision or diplopia ENT ENT ED: Denies ear pain, rhinorrhea or sore throat Cardiovascular Cardiovascular: Denies chest pain, orthopnea, palpitations or racing heartbeat Respiratory/Chest Respiratory/Chest: Denies cough, dyspnea or orthopnea Gastrointestinal Gastrointestinal: Reports nausea; Denies abdominal pain, diarrhea or vomiting Genitourinary Genitourinary ED: Denies dysuria, hematuria or urinary frequency Musculoskeletal Musculoskeletal: Denies arthralgias or myalgias Integumentary Denies abscess or rash Neurologic Neurologic: Reports headache(s); Denies weakness Psychiatric Psychiatric: Denies anxiety, depression, suicidal ideation or suicidal thoughts Endocrine Endocrinology: Denies polydipsia, polyphagia or polyuria Allergic/Immunologic Allergic/Immunologic ED: Denies mouth swelling, tongue swelling or urticaria EXAM Physical Exam Const Vital Signs: 10/23/21 07:59 Temperature 98.0 F Temperature Source Temporal Pulse Rate 70 Respiratory Rate 18 Blood Pressure 136/66 H Blood Pressure Mean 89 Pulse Ox 97 Oxygen Delivery Method Room Air Positive well nourished and well developed General Appearance ED: well developed HEENT Reports normocephalic, head/scalp atraumatic, TM's clear and moist mucous membranes atraumatic Tympanic Membrane ED: Yes TM's clear Eyes PERRL and EOMs intact bilaterally Eyes Narrative: Patient has light sensitivity Neck no lymphadenopathy, supple and no JVD Resp normal respiratory effort and clear to auscultation bilaterally Cardio regular rate, regular rhythm and no murmurs GI normal to inspection, nondistended, normoactive bowel sounds and non-tender Palpation: soft Back/Spine no CVA tenderness and normal ROM Extremity normal to inspection General Extremety ED: Negative for edema General Extremity: Negative for edema Neuro oriented x3 and CN's II-XII intact bilaterally Sensorium / Orientation: alert Motor Exam: strength 5/5 throughout Psych mental status grossly normal Mood & Affect: Negative for depressed or tearful Skin no rashes or lesions noted and no wounds MDM MDM MDM Narrative Medical decision making narrative: An IV was established and the patient received Toradol, Reglan, and Benadryl. Repeat examination finds the patient to be feeling better. She will be discharged home return if worsening or concerns Discharge Plan Triage Chief Complaint: Headache ED Provider: Jabier Trujillo Dx/Rx/DC Orders Clinical Impression: Headache, migraine Instructions: ED, Migraine (Classical) Prescriptions: No Action sumatriptan succinate 50 MG tablet 50 mg PO .X1 PRN PRN (Reason: Headache) RF: 0 pantoprazole 40 MG tablet 40 mg PO DAILY RF: 0 ibuprofen 800 MG tablet 600 mg PO TID PRN PRN (Reason: Pain) RF: 0 naproxen [Naprosyn] 500 mg tablet 500 mg PO BID PRN (Reason: pain) Qty: 20 RF: 0 Primary Care Provider: Valorie Nunez Referrals: Valorie Nunez MD [Primary Care Provider] - As Needed Disposition Disposition: Home, Self Care
[2021-10-23] MEDS: DiphenhydrAMINE 50 MG/ML Syringe IV (08:49)
[2021-10-23] MEDS: 0.9% Normal Saline 1,000 ML 999 ML IV (08:49)
[2021-10-23] MEDS: Metoclopramide 10 MG/2 ML Vial IV (08:52)
[2021-10-23] MEDS: Ketorolac 30 MG/ML Syringe IV (08:52)
== END 2021-10-23 10:33 | disposition home or self-care (01) ==
PROVIDERS: Emergency Provider Emergency Medicine; PCP Internal Medicine
DX: G43.909 Migraine, unspecified, not intractable, without status migrainosus (principal); F17.210 Nicotine dependence, cigarettes, uncomplicated; K21.9 Gastro-esophageal reflux disease without esophagitis; J45.909 Unspecified asthma, uncomplicated; Z90.49 Acquired absence of other specified parts of digestive tract; Z79.1 Long term (current) use of non-steroidal anti-inflammatories (NSAID)
CPT/HCPCS: 96361; 96374; 96375; 99283